=== PATIENT | female | born 1970 | race Caucasian/White ===

== ENCOUNTER → 2018-04-06 | Day surgery (SDC) | payer MEDICARE, OTHER, MEDICAID ==
[~2018-04-06] MED LIST: BUPIVACAINE HCL 0.5 % INJ/PF 30 ML SDV ONE; LIDOCAINE 1% INJ-PF (10 MG/ML) 30 ML SDV ONE; METHYLPREDNISOLONE ACETATE INJ 40 MG/1 ML ML ONE
== END ==
LOC: RAD 09:06
PROVIDERS: ATTEND Pain Medicine Interventional Pain Medicine
DX: M47.816 Spondylosis without myelopathy or radiculopathy, lumbar region (principal)
CPT/HCPCS: 64636; 64635; J3490 ×2; J1020